=== PATIENT | male | born 1940 | race Caucasian/White ===

== ENCOUNTER → 2016-11-02 | Outpatient (CLI) | payer OTHER ==
--- NOTE | 2016-11-02 15:15 | DIAGNOSTIC IMAGING REPORT ---
ANKLE BRACHIAL INDEX COMPLETE CLINICAL HISTORY: 75 years-old Male presenting with PERIPHERAL ARTERIAL DISEASE. TECHNIQUE: Ankle brachial indices were obtained. COMPARISON: None. FINDINGS: Brachial: Right: 124 mmHg. Left: 114 mmHg. Ankle (posterior tibial): Right: 149 mmHg. Left: 146 mmHg. Ankle (dorsalis pedis): Right: 145 mmHg. Left: 139 mmHg. Ankle/brachial index: Right: 1.20, Left: 1.18. Reference ranges: Normal CARLA 1.0-1.4; 0.9-0.99 borderline; less than 0.9 abnormal. IMPRESSION: Normal bilateral ankle-brachial indices. Electronically signed by: Francis Valadez M.D. 11/02/2016 3:14 PM Dictated Date/Time: 11/02/2016 3:13 PM
== END | disposition home or self-care (01) ==
LOC: C.ULTR 14:26
PROVIDERS: ATTEND Orthopaedic Surgery
DX: I73.9 Peripheral vascular disease, unspecified (principal)